=== PATIENT | male | born 1985 | race Caucasian/White ===

== ENCOUNTER 2016-08-01 15:43 | Emergency (ER) | payer SELFPAY ==
[~2016-08-01] VITALS: Ht 167.6 cm; Wt 68.6 kg
[~2016-08-01 15:43] MED LIST: CIPR0.3S RIGHT EAR; CIPR500T4 PO; CORTIS10A RIGHT EAR; HYDR-3533 PO; TRAM50 PO; ZITH250T PO
[2016-08-01 16:31] VITALS: BP 125/87; PULSE 92; RESP 16; TEMP 99.8; O2SAT 97
[2016-08-01] MEDS ORDERED: DOXY1TAB13 PO (16:47)
--- NOTE | 2016-08-01 16:47 | PD ---
HPI Chief Complaint: Bite or Sting Time Seen by Provider: 16:39 Travel History International Travel<30 days: No Contact w/Intl Traveler<30days: No Traveled to known affect area: No History of Present Illness HPI Patient is a 31-year-old male presenting to the emergency for evaluation of a tick bite. Patient states he found the tick on the back of his leg this morning. He states it was probably there for approximately 12 hours. Patient reports feeling tired and having a headache as well. He states he has a history of Lyme disease 5 years ago from a tick bite at that time he was living in [place]. He denies any nausea, vomiting, fever, chills. Denies any medical history otherwise. Patient has a small 2 mm tick with him. PFSH Past Medical History Narrative Medical Lyme disease Diminished Hearing: No Past Surgical History Appendectomy: Yes Social History Alcohol Use: No Tobacco Use: Yes (1PPD) Substance Use: No Allergies-Medications (Allergen,Severity, Reaction): Coded Allergies: Clindamycin (Verified Allergy, Intermediate, n/v, 08/01/16) Reported Meds & Prescriptions Reported Meds & Active Scripts Active Lortab 5 mg/325 mg (Hydrocodone/Acetaminophen 5 mg/325 mg) 1 Tab 1-2 Tab PO Q6H PRN Ciprodex Otic Susp (Ciprofloxacin/Dexamethasone) 7.5 Ml Susp 5 Drop RIGHT EAR Q12 10 Days Cipro (Ciprofloxacin HCl) 500 Mg Tab 500 Mg PO BID 10 Days Cortisporin Otic Suspension (Neomycin/Polymyxin/Hydrocortisone) 10 Ml Susp 3 Drop RIGHT EAR QID 7 Days Ultram (Tramadol HCl) 50 Mg Tab 1 Tab PO Q6 PRN FOR PAIN Zithromax Z-Giacomo (Azithromycin) 250 Mg Tab 250 Mg PO DIRECTED 5 Days 500 MG (2 TABLETS) PO ON DAY 1, THEN 250 MG (1 TABLET) PO ON DAYS 2 TO 5. Review of Systems Except as stated in HPI: all other systems reviewed are Neg General / Constitutional: Positive: Other (fatigue) Skin: Positive Lesions Physical Exam Narrative GENERAL: Well-nourished, well-developed patient. SKIN: Warm and dry. 0.5 centimeter area of induration to the left inner, upper thigh more posteriorly. No bull's-eye rash noted. HEAD: Normocephalic. EYES: No scleral icterus. No injection or drainage. NECK: Supple, trachea midline. No JVD or lymphadenopathy. CARDIOVASCULAR: Regular rate and rhythm without murmurs, gallops, or rubs. RESPIRATORY: Breath sounds equal bilaterally. No accessory muscle use. GASTROINTESTINAL: Abdomen soft, non-tender, nondistended. MUSCULOSKELETAL: No cyanosis, or edema. BACK: Nontender without obvious deformity. No CVA tenderness. Data Data Last Documented VS Vital Signs Date Time Temp Pulse Resp B/P Pulse Ox O2 Delivery O2 Flow Rate FiO2 08/01/16 16:31 99.8 92 16 125/87 97 [facility] Medical Decision Making Medical Screen Exam Complete: Yes Emergency Medical Condition: Yes Interpretation(s) Vital Signs Date Time Temp Pulse Resp B/P Pulse Ox O2 Delivery O2 Flow Rate FiO2 08/01/16 16:31 99.8 92 16 125/87 97 Differential Diagnosis Allergic reaction versus tick bite versus cellulitis versus other Narrative Course Patient is a 31-year-old male presenting to the emergency department for evaluation of a tick bite to his left leg, he noticed the tick there this morning. He reports a history of Lyme disease and is requesting treatment again for Lyme disease. Discussed with patient that we would treat empirically , he will need to follow-up with primary care to be tested for it. He verbalized understanding of these instructions. He was advised to return to emergency department for any new or worsening symptoms. Patient is stable for discharge. Diagnosis Primary Impression: Tick bite of thigh Qualified Code: S70.362A - Tick bite of thigh, left, initial encounter Referrals: Primary Care Physician Patient Instructions: General Instructions, Tick Bite (ED) Additional Instructions: Follow-up with your primary doctor further testing and evaluation Complete full course of antibiotics as prescribed Return to emergency department for any new or worsening symptoms Med/Other Pt SpecificInfo: Prescription(s) given Scripts Doxycycline (Monohydrate) (Doxycycline Monohydrate)100 Mg Tab1 Tab PO BID 21 Days Prov:Joi Jaquez 08/01/16 Disposition: 01 DISCHARGE HOME Condition: Stable Joi Jaquez Aug 01, 2016 16:47
== END 2016-08-01 16:58 | disposition home or self-care (01) ==
LOC: PHEFT 15:43
DX: S70.362A Insect bite (nonvenomous), left thigh, initial encounter (principal); W57.XXXA Bitten or stung by nonvenomous insect and other nonvenomous arthropods, initial encounter
CPT/HCPCS: 99283

== ENCOUNTER 2016-09-12 19:19 | Emergency (ER) | payer SELFPAY ==
[~2016-09-12 19:19] MED LIST changes: -CIPR0.3S RIGHT EAR; -CIPR500T4 PO; -CORTIS10A RIGHT EAR; +DOXY1TAB13 PO; -HYDR-3533 PO; -TRAM50 PO; -ZITH250T PO
[2016-09-12 19:34] VITALS: BP 171/104; PULSE 104; RESP 16; TEMP 98.6; O2SAT 98
--- NOTE | 2016-09-12 19:39 | PD ---
HPI Chief Complaint: OD/ Ingestion Time Seen by Provider: 19:22 Travel History International Travel<30 days: No Contact w/Intl Traveler<30days: No Traveled to known affect area: No History of Present Illness HPI The patient is a 31 year old male who presents to the [facility] emergency department with a history of reportedly accidentally overdosing prior to arrival. The patient reports that a friend gave him 2 pills that she took approximately an hour ago. He reports that he took this medication orally. He reports that he took it for recreational use. The patient's found him on the front porch unresponsive. She was concerned that he stopped breathing and she started CPR and called ambulance services. The patient was noted on ambulance services arrival to have pinpoint pupils, shallow respirations, cardiac activity was noted. The patient had IV access obtained and the patient was given Narcan 2 mg IV push. The patient immediately began to respond to the Narcan and awoke with a GCS of 15. The patient at this time reports being fearful of his and her reaction to his accidental overdose. He denies any suicidal or homicidal ideations. He does report having increased stress related to his work. He reports that he has a history of bipolar disorder, however he has not been on medication for the last 3 years. He denies drinking any alcohol today. He denies using any other drugs. The patient denies any recent fevers, cough, congestion, neck pain, chest pain, shortness of breath, abdominal pain, vomiting, diarrhea, urinary symptoms, or other neurologic symptoms. PFSH Past Medical History Narrative Medical The patient's past medical history is significant for bipolar disorder. Diminished Hearing: No Past Surgical History Narrative Surgical The patient's past surgical history is significant for an appendectomy. Appendectomy: Yes Social History Alcohol Use: Yes (occasional) Tobacco Use: Yes (1PPD) Substance Use: Yes (unknown pill ingestion earlier today) Allergies-Medications (Allergen,Severity, Reaction): Coded Allergies: Clindamycin (Verified Allergy, Intermediate, n/v, 08/01/16) Reported Meds & Prescriptions Reported Meds & Active Scripts Active Doxycycline Monohydrate (Doxycycline (Monohydrate)) 100 Mg Tab 1 Tab PO BID 21 Days Review of Systems Except as stated in HPI: all other systems reviewed are Neg General / Constitutional: No: Fever Eyes: No: Visual changes HENT: No: Headaches Cardiovascular: No: Chest Pain or Discomfort Respiratory: No: Shortness of Breath Gastrointestinal: No: Abdominal Pain Genitourinary: No: Dysuria Musculoskeletal: No: Pain Skin: No Rash Neurologic: Positive: Change in Mentation, No: Weakness, Focal Abnormalities, Coordination Problem, Slurred Speech, Sensory Disturbance Psychiatric: No: Depression Endocrine: No: Polydipsia Hematologic/Lymphatic: No: Easy Bruising Physical Exam Narrative General: The patient is a well-developed well-nourished male in no acute distress. The patient arrives awake and alert by ambulance services. Head and Neck exam: Head is normocephalic atraumatic. Eyes: EOMI, pupils are equal round and reactive to light. Nose: Midline septum with pink mucous membranes Mouth: Dentition unremarkable. Moist mucus membranes. Posterior oropharynx is not erythematous. No tonsillar hypertrophy. Uvula midline. Airway patent. Neck: No palpable lymphadenopathy. No nuchal rigidity. No thyromegaly. Cardiovascular: Sinus tachycardia in the low 100s without murmurs, gallops, or rubs. Lungs: Clear to auscultation bilaterally. No wheezes, rhonchi, or rales. Abdomen: Soft, without tenderness to palpation in all 4 quadrants of the abdomen. No guarding, rebound, or rigidity. Normal bowel sounds are audible. Extremities: No clubbing, cyanosis, or edema. No calf tenderness on palpation. Back: No spinous process tenderness to palpation. No costovertebral angle tenderness to palpation. Neurologic Exam: Cranial nerves 2-12 were intact on exam. Strength is 5/5 in all 4 extremities. No sensory deficits noted. The patient is oriented to person, place, time, and situation. Skin Exam: No rash noted. Intact skin that is warm and dry. Data Data Last Documented VS Vital Signs Date Time Temp Pulse Resp B/P Pulse Ox O2 Delivery O2 Flow Rate FiO2 09/12/16 19:34 98.6 104 16 171/104 98 Room Air Orders Electrocardiogram (09/12/16 19:30) Complete Blood Count With Diff (09/12/16 19:30) Comprehensive Metabolic Panel (09/12/16 19:30) Urinalysis - C+S If Indicated (09/12/16 19:30) Magnesium (Mg) (09/12/16 19:30) Chest, Single Ap (09/12/16 19:30) Iv Access Insert/Monitor (09/12/16 19:30) Ecg Monitoring (09/12/16 19:30) Oximetry (09/12/16 19:30) Drug Screen, Random Urine (09/12/16 19:30) Alcohol (Ethanol) (09/12/16 19:30) Salicylates (Aspirin) (09/12/16 19:30) Tylenol (Acetaminophen) (09/12/16 19:30) Sodium Chlor 0.9% 1000 Ml Inj (Ns 1000 M (09/12/16 19:45) Ondansetron Inj (Zofran Inj) (09/12/16 22:30) Sodium Chlor 0.9% 1000 Ml Inj (Ns 1000 M (09/12/16 22:30) Labs Laboratory Tests Test 09/12/16 09/12/16 19:35 22:30 White Blood Count 10.7 TH/MM3 Red Blood Count 4.64 MIL/MM3 Hemoglobin 14.1 GM/DL Hematocrit 40.3 % Mean Corpuscular Volume 86.8 FL Mean Corpuscular Hemoglobin 30.3 PG Mean Corpuscular Hemoglobin 34.9 % Concent Red Cell Distribution Width 13.2 % Platelet Count 236 TH/MM3 Mean Platelet Volume 8.6 FL Neutrophils (%) (Auto) 60.3 % Lymphocytes (%) (Auto) 31.8 % Monocytes (%) (Auto) 5.7 % Eosinophils (%) (Auto) 1.5 % Basophils (%) (Auto) 0.7 % Neutrophils # (Auto) 6.4 TH/MM3 Lymphocytes # (Auto) 3.4 TH/MM3 Monocytes # (Auto) 0.6 TH/MM3 Eosinophils # (Auto) 0.2 TH/MM3 Basophils # (Auto) 0.1 TH/MM3 CBC Comment DIFF FINAL Differential Comment Sodium Level 140 MEQ/L Potassium Level 3.6 MEQ/L Chloride Level 102 MEQ/L Carbon Dioxide Level 31.1 MEQ/L Anion Gap 7 MEQ/L Blood Urea Nitrogen 9 MG/DL Creatinine 1.00 MG/DL Estimat Glomerular Filtration 87 ML/MIN Rate Random Glucose 100 MG/DL Calcium Level 8.8 MG/DL Magnesium Level 2.0 MG/DL Total Bilirubin 0.4 MG/DL Aspartate Amino Transf 18 U/L (AST/SGOT) Alanine Aminotransferase 22 U/L (ALT/SGPT) Alkaline Phosphatase 64 U/L Total Protein 7.6 GM/DL Albumin 4.2 GM/DL Salicylates Level 2.7 MG/DL Acetaminophen Level LESS THAN 2.0 MCG/ML Ethyl Alcohol Level LESS THAN 3 MG/DL Urine Color YELLOW Urine Turbidity CLEAR Urine pH 6.5 Urine Specific [place] 1.014 Urine Protein NEG mg/dL Urine Glucose (UA) NEG mg/dL Urine Ketones NEG mg/dL Urine Occult Blood NEG Urine Nitrite NEG Urine Bilirubin NEG Urine Urobilinogen LESS THAN 2.0 MG/DL Urine Leukocyte Esterase TRACE Urine RBC 1 /hpf Urine WBC 4 /hpf Urine Hyaline Casts 4 /lpf Microscopic Urinalysis Comment CULT NOT INDICATED Urine Opiates Screen POS Urine Barbiturates Screen NEG Urine Amphetamines Screen NEG Urine Benzodiazepines Screen NEG Urine Cocaine Screen POS Urine Cannabinoids Screen POS MDM Medical Decision Making Medical Screen Exam Complete: Yes Emergency Medical Condition: Yes Medical Record Reviewed: Yes Differential Diagnosis Accidental overdose, versus intentional overdose Narrative Course During the course of the patients emergency department visit, the patients history, examination, and differential diagnosis were reviewed with the patient. The patient had IV access obtained and blood work sent for analysis. The patient is placed on a quality assurance monitor final with oximetry and blood pressure monitoring. An EKG was done on arrival. The patient's EKG shows a sinus tachycardia rate of 101, no acute ST segment elevation or depression. T waves are inverted in V1. The patient was provided normal saline 1 L IV fluid bolus. The patient was given Zofran 4 mg IV 1 for nausea. The patients laboratory studies were reviewed and remarkable for a CBC that is unremarkable. CMP is unremarkable, urinalysis unremarkable, urine drug screen is positive for opiates, cocaine, cannabinoids. Salicylate 2.7, acetaminophen less than 2, alcohol less than 3. Radiology studies were reviewed and remarkable for a chest x-ray that shows no acute abnormality. The patient will be monitored in the emergency department for any recurrence of respiratory depression, altered mentation. The patient had no respiratory depression noted. The patient had no change in level of consciousness after being observed for over 3-1/2 hours. The patient will be discharged home with his significant other who will also be closely observing him. The patient is resting comfortably and feels better, is alert and in no distress. The patients results and examination findings were discussed with the patient. The repeat examination is unremarkable and benign. The history, exam, diagnostic testing, and current condition do not suggest any significant pathology to warrant further testing, continued ED treatment, admission, or surgical evaluation at this point. The vital signs have been stable. The patient does not have uncontrollable pain, intractable vomiting, or other significant symptoms. The patient's condition is stable and appropriate for discharge. The patient will pursue further outpatient evaluation with a primary care physician or other designated or consulting physician as indicated in the discharge instructions. The patient expressed understanding and was agreeable with this plan. Diagnosis Primary Impression: Accidental overdose Qualified Code: T50.901A - Accidental overdose, initial encounter Additional Impression: Polysubstance abuse Referrals: Primary Care Physician 2 days Patient Instructions: Adult Overdose (ED), General Instructions Med/Other Pt SpecificInfo: No Meds Exist/No RX given Disposition: 01 DISCHARGE HOME Condition: Stable Floresita Easton MD Sep 12, 2016 19:39
[2016-09-12] MEDS ORDERED: SODIUM CHLOR 0.9% 1000 ML INJ 1,000 ML IV ONE ×2 (19:45→22:30)
[2016-09-12 19:46] LABS: AUTOMATED NEUTROPHIL # 6.4 TH/MM3 (1.8-7.7); BASOPHIL # 0.1 TH/MM3 (0-0.2); BASOPHIL % 0.7 % (0.0-2.0); EOSINOPHIL # 0.2 TH/MM3 (0-0.4); EOSINOPHIL % 1.5 % (0.0-4.0); HEMATOCRIT 40.3 % (39.0-51.0); HEMO FLAGS DIFF FINAL; LYMPH % 31.8 % (9.0-44.0); LYMPHOCYTE # 3.4 TH/MM3 (1.0-4.8); MEAN CELL VOLUME 86.8 FL (80.0-100.0); MEAN CORPUSCULAR HEMOGLOBIN 30.3 PG (27.0-34.0); MEAN CORPUSCULAR HGB CONC 34.9 % (32.0-36.0); MONO % 5.7 % (0.0-8.0); NEUT % 60.3 % (16.0-70.0); PLATELET COUNT 236 TH/MM3 (150-450); RED BLOOD COUNT 4.64 MIL/MM3 (4.50-5.90); RED CELL DISTRIBUTION WIDTH 13.2 % (11.6-17.2); WHITE BLOOD COUNT 10.7 TH/MM3 (4.0-11.0)
[2016-09-12 20:00] LABS: ANION GAP 7 MEQ/L (5-15)
[2016-09-12 20:03] LABS: ACETAMINOPHEN LESS THAN 2.0 MCG/ML (10.0-30.0); ALKALINE PHOSPHATASE 64 U/L (45-117); ALT (GPT) 22 U/L (12-78); AST (GOT) 18 U/L (15-37); BICARBONATE 31.1 MEQ/L (21.0-32.0); BLOOD UREA NITROGEN 9 MG/DL (7-18); CHLORIDE 102 MEQ/L (98-107); GLOMERULAR FILTRATION RATE 87 ML/MIN (>89); POTASSIUM 3.6 MEQ/L (3.5-5.1); SODIUM (NA) 140 MEQ/L (136-145); TOTAL BILIRUBIN ADULT 0.4 MG/DL (0.2-1.0)
--- NOTE | 2016-09-12 21:47 | RADRPT ---
EXAM DATE/TIME: 09/12/2016 19:55 [facility] COMPARISON: No previous studies available for comparison. INDICATIONS : Evaluate lung status. Possible overdose. MEDICAL HISTORY : None. SURGICAL HISTORY : None. ENCOUNTER: Initial ACUITY: 1 day PAIN SCORE: 0/10 LOCATION: Bilateral chest FINDINGS: The lungs are clear without infiltrate, nodule, or mass. There is no appreciable pleural effusion fo r technique. Heart and mediastinum are unremarkable. CONCLUSION: No acute cardiopulmonary disease. Sandra Bonilla MD on September 12, 2016 at 21:45 Board Certified Radiologist. This report was verified electronically.
[2016-09-12] MEDS ORDERED: ONDANSETRON HCL 4 MG/2 ML VIAL IV ONE (22:30)
[2016-09-12 22:47] LABS: BLOOD, URINE NEG (NEG); COMMENT (UR) CULT NOT INDICATED; CULTURE IF INDICATED CULT NOT INDICATED; GLUCOSE,URINE NEG (NEG); HYALINE CAST, URINE 4 /lpf (RARE); KETONE, URINE NEG (NEG); NITRITE,URINE NEG (NEG); PH, URINE 6.5 (5.0-8.5); URINE COLOR YELLOW (YELLW/STRAW)
[2016-09-12 22:52] LABS: AMPHETAMINE, URINE NEG (NEG); BARBITURATES, URINE NEG (NEG); COCAINE, URINE POS (NEG)
--- NOTE | 2016-09-13 10:00 | EKG ---
Date Performed: 09/12/2016 Time Performed: 19:26:55 PTAGE: 31 years EKG: SINUS TACHYCARDIA ABNORMAL RHYTHM ECG NO PREVIOUS TRACING DOCTOR: Ashvin Cowan Interpretating Date/Time 09/13/2016 09:59:12
== END 2016-09-13 00:08 | disposition home or self-care (01) ==
LOC: NEPE 19:19
DX: T50.901A Poisoning by unspecified drugs, medicaments and biological substances, accidental (unintentional), initial encounter (principal); R00.0 Tachycardia, unspecified; F17.210 Nicotine dependence, cigarettes, uncomplicated; F19.10 Other psychoactive substance abuse, uncomplicated
CPT/HCPCS: 71010; 80053; 80307; 81001; 83735; 85025; 93005; 99284; J7030